=== PATIENT | female | born 1985 | race African-American/Black ===

== ENCOUNTER 2020-05-11 22:37 | Emergency (ER) | payer BC, MEDICAID ==
[~2020-05-11] VITALS: Ht 160 cm; Wt 96.6 kg
[2020-05-12 00:22] LABS: Basophils # (auto) 0.1 10 ^3/uL (0-0.2); Eosinophils # (auto) 0.1 10 ^3/uL (0-0.8); Hematocrit 28.1 % (36.0-46.0); Hemoglobin 8.6 g/dL (12.2-16.2); Red Blood Cells 4.86 10^6/uL (4.0-5.20)
[2020-05-12 00:24] LABS: Basophils % (auto) 0.9 % (0.0-2.0); Eosinophils % (auto) 1.1 % (0.0-7.0); Lymphocytes # (auto) 2.4 10 ^3/uL (0.4-5.4); Lymphocytes % (auto) 34.5 % (10.0-50.0); Mean Corpuscular Hemoglobin 17.7 pg (28.0-32.0); Mean Corpuscular Hgb Conc. 30.5 g/dL (32.0-36.0); Mean Corpuscular Volume 57.9 fL (80.0-100.0); Monocytes # (auto) 0.4 10 ^3/uL (0-1.3); Monocytes % (auto) 6.2 % (0.0-12.0); Neutrophils % (auto) 57.3 % (37.0-80.0); Nucleated Red Blood Cells % 0.2 %; Platelet Count (auto) 252 10^3/uL (140-450); Red Cell Distribution Width 20.3 % (11.8-14.3)
[2020-05-12 00:29] LABS: INR 0.99 (0.9-1.15); Partial Thromboplastin Time 21.1 sec (23.0-31.2)
[2020-05-12 00:31] LABS: Albumin 3.1 g/dL (3.4-5.0); Calcium 8.6 mg/dL (8.5-10.1)
[2020-05-12 00:33] LABS: BUN/Creatinine Ratio 12.5
[2020-05-12 00:35] LABS: Bilirubin, Total 0.2 mg/dL (0.2-1.0); Total Protein 7.7 g/dL (6.4-8.2)
[2020-05-12 02:45] VITALS: BP 124/80
== END 2020-05-12 04:38 | disposition home or self-care (01) ==
LOC: ER 22:37
DX: I82.622 Acute embolism and thrombosis of deep veins of left upper extremity (principal); Z98.51 Tubal ligation status
CPT/HCPCS: 36415; 73060; 73090; 80053; 85025; 85379; 85610; 85730; 93971

== ENCOUNTER 2023-11-27 18:19 | Emergency (ER) | payer BC, OTHER, MEDICAID ==
[~2023-11-27] VITALS: Ht 167.6 cm; Wt 80.0 kg
[2023-11-27 19:38] LABS: Monocytes # (auto) 0.4 10 ^3/uL (0-1.3); Nucleated Red Blood Cells % 0.1 %
[2023-11-27 19:40] LABS: Basophils # (auto) 0.1 10 ^3/uL (0-0.2); Basophils % (auto) 0.9 % (0.0-2.0); Eosinophils # (auto) 0.1 10 ^3/uL (0-0.8); Eosinophils % (auto) 0.8 % (0.0-7.0); Hematocrit 38.4 % (36.0-46.0); Hemoglobin 12.5 g/dL (12.2-16.2); Lymphocytes # (auto) 2.4 10 ^3/uL (0.4-5.4); Lymphocytes % (auto) 34.2 % (10.0-50.0); Mean Corpuscular Hemoglobin 22.1 pg (28.0-32.0); Mean Corpuscular Hgb Conc. 32.4 g/dL (32.0-36.0); Monocytes % (auto) 5.6 % (0.0-12.0); Neutrophils # (auto) 4.1 10 ^3/uL (1.6-8.6); Neutrophils % (auto) 58.5 % (37.0-80.0); Platelet Count (auto) 269 10^3/uL (140-450); Red Blood Cells 5.66 10^6/uL (4.0-5.20); Red Cell Distribution Width 16.9 % (11.8-14.3)
[2023-11-27 19:56] LABS: Alanine Aminotransferase 14 U/L (7-40); Albumin 4.7 g/dL (3.2-4.8); Alkaline Phosphatase 84 U/L (46-116); Anion Gap 5 (5-15); Aspartate Aminotransferase 19 U/L (13-40); BUN/Creatinine Ratio 10.8 (10.0-20.0); Bilirubin, Total 0.5 mg/dL (0.2-1.0); Blood Urea Nitrogen 9 mg/dL (9-23); Calcium 9.6 mg/dL (8.7-10.4); Carbon Dioxide 27 mmol/L (20-30); Chloride 105 mmol/L (98-107); Glucose 88 mg/dL (74-106); Potassium 4.6 mmol/L (3.5-5.1); Sodium 137 mmol/L (136-145)
[2023-11-27 21:18] LABS: Urine Bacteria FEW /hpf (None Seen); Urine Blood Negative /uL (Negative); Urine Clarity Turbid (Clear); Urine Color Light-Yellow (Yellow); Urine Mucus FEW (None Seen); Urine Protein, UAD Negative (Negative); Urine Specific Gravity 1.019 (1.001-1.035); Urine Urobilinogen Normal (Negative); Urine WBC 8 /hpf (0 - 5); Urine pH 5.5 (5.0-9.0)
[2023-11-27] MEDS: SODIUM CHLORIDE 0.9% 1,000 ML IV ONE (23:24)
[2023-11-27] MEDS ORDERED: CEFD300C2 PO (23:29)
[2023-11-28] MEDS: cefTRIAXone 1GM/50ML D5W 50 ML IV ONE (00:27)
[2023-11-28 00:58] VITALS: BP 137/86; PULSE 72; RESP 20; TEMP 98.8; O2SAT 100
== END 2023-11-28 01:18 | disposition home or self-care (01) ==
LOC: ER 18:19
DX: N39.0 Urinary tract infection, site not specified (principal); G43.909 Migraine, unspecified, not intractable, without status migrainosus; Z90.49 Acquired absence of other specified parts of digestive tract; Z98.890 Other specified postprocedural states
CPT/HCPCS: 36415; 70450; 71046; 80053; 81001; 84484; 85025; 93005; 96361; 96365; 99285; J0696; J7030

== ENCOUNTER 2023-12-05 20:54 | Emergency (ER) | payer BC, OTHER, MEDICAID ==
[~2023-12-05] VITALS: Ht 162.6 cm; Wt 101.5 kg
[~2023-12-05 20:54] MED LIST: CEFD300C2 PO
[2023-12-05 21:40] VITALS: BP 137/78; PULSE 75; O2SAT 100
[2023-12-05 23:47] VITALS: RESP 16
== END 2023-12-05 23:48 | disposition home or self-care (01) ==
LOC: ER 20:54
DX: M79.602 Pain in left arm (principal); Q27.8 Other specified congenital malformations of peripheral vascular system; E66.01 Morbid (severe) obesity due to excess calories; Z68.38 Body mass index [BMI] 38.0-38.9, adult; Z98.890 Other specified postprocedural states; Z79.899 Other long term (current) drug therapy